=== PATIENT | female | born 1980 | race Caucasian/White ===

== ENCOUNTER → 2016-12-13 | Outpatient (CLI) | payer OTHER ==
--- NOTE | 2016-12-13 15:41 | XR ---
EXAMINATION TYPE: XR foot complete RT DATE OF EXAM: 12/13/2016 3:28 PM CLINICAL HISTORY: Right foot pain for 3 weeks worse in fourth and fifth toes. TECHNIQUE: Frontal, lateral, and oblique images of the right foot are obtained. COMPARISON: None FINDINGS: There is no acute fracture/dislocation evident in the right foot. The joint spaces in the right foot appear within normal limits. The overlying soft tissue appears unremarkable. IMPRESSION: There is no acute fracture or dislocation in the right foot. Unremarkable study.
== END | disposition home or self-care (01) ==
LOC: RADXRMAIN 14:53
PROVIDERS: ATTEND Family Medicine
DX: M79.671 Pain in right foot (principal)

== ENCOUNTER → 2017-04-17 | Outpatient (CLI) | payer OTHER ==
--- NOTE | 2017-04-17 18:23 | MR ---
EXAMINATION TYPE: MR cervical spine wo con DATE OF EXAM: 04/17/2017 COMPARISON: 07/28/2013 HISTORY: Neck pain TECHNIQUE: Multiplanar, multisequence images of the cervical spine were acquired. C2-C3: No evidence for degenerative disc disease. No disc bulge/herniation or protrusion. No Canal stenosis. Foramina are patent bilaterally. C3-C4: No evidence for degenerative disc disease. No disc bulge/herniation or protrusion. No Canal stenosis. Foramina are patent bilaterally. C4-C5: No evidence for degenerative disc disease. No disc bulge/herniation or protrusion. No Canal stenosis. Foramina are patent bilaterally. Mild uncovertebral joint hypertrophy. C5-C6: No evidence for degenerative disc disease. No disc bulge/herniation or protrusion. No Canal stenosis. Foramina are patent bilaterally. Mild uncovertebral joint hypertrophy greater on the left. C6-C7: Very minimal central and left paracentral disc bulging but no canal stenosis or focal herniati on. Neural foramina patent. C7-T1: No evidence for degenerative disc disease. No disc bulge/herniation or protrusion. No Canal stenosis. Foramina are patent bilaterally. Cervical segments are intact. There is normal alignment. Cervical spinal cord is of normal signal. Craniovertebral junction relationships are within normal limits. IMPRESSION: Minimal central and left paracentral disc bulging C6-C7 with no evidence of canal stenosi s or foraminal encroachment.
== END | disposition home or self-care (01) ==
LOC: RADMRIMAIN 17:16
PROVIDERS: ATTEND Family Medicine
DX: M50.223 Other cervical disc displacement at C6-C7 level (principal)
CPT/HCPCS: 72141

== ENCOUNTER → 2017-04-23 | Outpatient (CLI) | payer OTHER | END | disposition home or self-care (01) | LOC: LABWHC1 10:48 | PROVIDERS: ATTEND Obstetrics & Gynecology | DX: N92.0 Excessive and frequent menstruation with regular cycle (principal) | CPT/HCPCS: 36415; 83001; 83002; 84146; 84443 ==

== ENCOUNTER → 2017-06-09 | Outpatient (CLI) | payer OTHER ==
[2017-06-09 13:32] LABS: Basophils # (A) 0.1 k/uL (0-0.2); Basophils % (A) 1 %; CH 30.6; CHCM 33.6; Eosinophils # (A) 0.2 k/uL (0-0.7); Eosinophils % (A) 2 %; HCT 42.5 % (34.0-46.0); HDW 2.65; HGB 14.2 gm/dL (11.4-16.0); Luc # (Auto) 0.15; Luc % (Auto) 2; Lymphocytes # (A) 2.1 k/uL (1.0-4.8); Lymphocytes % (A) 22 %; MCH 30.5 pg (25.0-35.0); MCHC 33.3 g/dL (31.0-37.0); MCV 91.5 fL (80.0-100.0); Mean Platelet Volume 6.7; Monocytes # (A) 0.5 k/uL (0-1.0); Monocytes % (A) 5 %; Neutrophils # (A) 6.7 k/uL (1.3-7.7); Neutrophils % (A) 69 %; RBC 4.65 m/uL (3.80-5.40); RDW 12.8 % (11.5-15.5); WBC 9.7 k/uL (3.8-10.6); WBC (Perox) 9.39
== END | disposition home or self-care (01) ==
LOC: LABPAT 11:50
PROVIDERS: ATTEND Obstetrics & Gynecology
DX: Z01.812 Encounter for preprocedural laboratory examination (principal)
CPT/HCPCS: 85025

== ENCOUNTER → 2017-08-13 | Outpatient (CLI) | payer OTHER ==
--- NOTE | 2017-08-14 11:07 | MM ---
Reason for exam: additional evaluation requested from prior study. Last mammogram was performed 1 year ago. History: Family history of breast cancer in mother at age 48, breast cancer in maternal grandmother, breast cancer in paternal grandmother, and breast cancer in 2 aunts. Took hormonal contraceptives for 2 years. Physical Findings: Nurse Summary: 0.5cm nodule in the right breast at 10 o'clock and a less than 0.5cm nodule in the left breast at 3 o'clock (nurse kp). MG Diagnostic Mammo w CAD [facility] Bilateral CC and MLO view(s) were taken. Prior study comparison: August 09, 2016, bilateral MG screening mammo w CAD. August 08, 2015, bilateral MG screening mammo w CAD. The breast tissue is heterogeneously dense. This may lower the sensitivity of mammography. No suspicious abnormality in the right breast. Stable left medial asymmetry back to 2014. These results were verbally communicated with the patient and result sheet given to the patient on 08/13/17. ASSESSMENT: Benign, BI-RAD 2 RECOMMENDATION: Routine screening mammogram of both breasts in 1 year.
--- NOTE | 2017-08-14 11:08 | USB ---
Reason for exam: clinical finding. History: Family history of breast cancer in mother at age 48, breast cancer in maternal grandmother, breast cancer in paternal grandmother, and breast cancer in 2 aunts. Took hormonal contraceptives for 2 years. Indicated problem(s): palpable abnormality in both breasts. US Breast Limited BILAT Right breast ultrasound demonstrates a 0.6 x 0.6 x 0.6cm oval, hypoechoic lesion at 10 o'clock. Left breast ultrasound demonstrates no cystic or solid lesion seen. These results were verbally communicated with the patient and result sheet given to the patient on 08/13/17. ASSESSMENT: Benign, BI-RAD 2 RECOMMENDATION: Routine screening mammogram of both breasts in 1 year.
== END | disposition home or self-care (01) ==
LOC: RADMAMWWP 10:27
PROVIDERS: ATTEND Obstetrics & Gynecology
DX: R92.8 Other abnormal and inconclusive findings on diagnostic imaging of breast (principal)
CPT/HCPCS: 76642; G0204

== ENCOUNTER → 2017-12-11 | Outpatient (CLI) | payer OTHER ==
[2017-12-11 11:44] LABS: Basophils # (A) 0.1 k/uL (0-0.2); Basophils % (A) 1 %; Eosinophils # (A) 0.1 k/uL (0-0.7); Eosinophils % (A) 1 %; HCT 42.4 % (34.0-46.0); HGB 14.5 gm/dL (11.4-16.0); Lymphocytes # (A) 1.3 k/uL (1.0-4.8); Lymphocytes % (A) 14 %; MCH 30.4 pg (25.0-35.0); MCHC 34.3 g/dL (31.0-37.0); MCV 88.6 fL (80.0-100.0); Mean Platelet Volume 6.6; Monocytes # (A) 0.4 k/uL (0-1.0); Monocytes % (A) 4 %; Neutrophils # (A) 7.3 k/uL (1.3-7.7); Neutrophils % (A) 79 %; Platelet Count 321 k/uL (150-450); RBC 4.78 m/uL (3.80-5.40); RDW 12.6 % (11.5-15.5); WBC 9.3 k/uL (3.8-10.6)
[2017-12-11 12:02] LABS: Anion Gap 12 mmol/L; Blood Urea Nitrogen 17 mg/dL (7-17); Calcium 9.8 mg/dL (8.4-10.2); Carbon Dioxide 29 mmol/L (22-30); Chloride 102 mmol/L (98-107); Glucose 95 mg/dL (74-99); Potassium 4.4 mmol/L (3.5-5.1); Sodium 143 mmol/L (137-145)
== END | disposition home or self-care (01) ==
LOC: LABPAT 11:09
PROVIDERS: ATTEND Obstetrics & Gynecology
DX: Z01.812 Encounter for preprocedural laboratory examination (principal)
CPT/HCPCS: 36415; 80048; 85025

== ENCOUNTER 2017-12-18 05:46 | Observation (INO) | payer OTHER ==
[2017-12-09 08:53] VITALS: BMI 29.9
[~2017-12-18 05:46] MED LIST: DEXAMETHASONE SOD PHOSPHATE 10 MG/ML 1 ML VIAL IV ONE; MORPHINE SULFATE 4 MG/ML SYRINGE IV PRN; ONDANSETRON ODT 4 MG TAB PO ONE
[2017-12-18] MEDS: LACTATED RINGERS 1,000 ML IV SCH ×2 (06:51→06:55)
--- NOTE | 2017-12-18 07:29 | P.HPOB ---
History of Present Illness H&P Date: 12/18/17 Chief Complaint: Menorrhagia and dysmenorrhea Patient is a 29-year-old female who has menorrhagia and dysmenorrhea despite and NovaSure ablation. Pain is actually worsened and her bleeding is actually getting closer since the NovaSure. She is therefore scheduled for a robotic- assisted hysterectomy with possible SARA and possible BSO. Risks/benefits/ alternatives were reviewed with the patient in detail including but not limited to bleeding, infection, damage to bladder/bowel/ureters/nerves/vessels. All questions were answered for her prior to proceeding to the operating room. Symptoms have gotten to the point where she is unable to function well and with passage of 1-2 cm clots for at least 4 days of her cycle off and she is unable to even leave the house. Past Medical History Past Medical History: Musculoskeletal Disorder Additional Past Medical History / Comment(s): heavy menses History of Any Multi-Drug Resistant Organisms: None Reported Past Surgical History: Cholecystectomy, Tubal Ligation, Uterine Ablation Additional Past Surgical History / Comment(s): D&C; Kidney stones Past Anesthesia/Blood Transfusion Reactions: No Reported Reaction Smoking Status: Never smoker - Past Family History Mother Family Medical History: Cancer Medications and Allergies Home Medications Medication Instructions Recorded Confirmed Type Cyclobenzaprine [Flexeril] 10 mg PO BID 12/09/17 12/18/17 History Etodolac [Lodine] 300 mg PO DAILY PRN 12/09/17 12/18/17 History Allergies Allergy/AdvReac Type Severity Reaction Status Date / Time meloxicam AdvReac Swelling Verified 12/18/17 06:23 Penicillins AdvReac Rash/Hives Verified 12/18/17 06:23 Exam Osteopathic Statement: *. No significant issues noted on an osteopathic structural exam other than those noted in the History and Physical/Consult. - Vital Signs Vital signs: Vital Signs Temp Pulse Resp BP Pulse Ox 12/18/17 06:27 98.1 F 85 16 130/81 98 - OBG Physical Exam Breast: both: normal (no masses) Abdomen: bowel sounds normal, no diffuse tenderness, no bruit present, no guarding noted, no hepatomegaly, no splenomegaly, no mass Vulva: both: normal Vagina: normal moisture, no discharge Cervix: no lesion, no discharge Uterus: normal size, normal contour Adnexa: both: normal Anus/Rectum: normal perianal skin, no rectal mass, no hemorrhoids, heme negative
[2017-12-18] MEDS ORDERED: BUPIVACAINE (PF) 0.25% 30 ML VIAL SQ ONE ×3 (07:32→09:01)
[2017-12-18] MEDS ORDERED: MIDAZOLAM 2 MG/2 ML VIAL ONE (07:33)
[2017-12-18] MEDS ORDERED: SUCCINYLCHOLINE CHLORIDE 100 MG/5 ML SYR IV ONE (07:33)
[2017-12-18] MEDS ORDERED: MORPHINE SULFATE 10 MG/ML SYRINGE ONE (07:33)
[2017-12-18] MEDS ORDERED: NEOSTIGMINE 1 MG/ML 10 ML VIAL ONE (07:33)
[2017-12-18] MEDS ORDERED: GLYCOPYRROLATE 0.2 MG/ML 2 ML VIAL ONE (07:33)
[2017-12-18] MEDS ORDERED: ROCURONIUM BROMIDE 10 MG/ML 10 ML VIAL IV ONE (07:33)
[2017-12-18] MEDS ORDERED: PROPOFOL 10 MG/ML 20 ML VIAL IV ONE (07:33)
[2017-12-18] MEDS: ceFAZolin IN SWFI 2 GM/20 ML SYRINGE IVP ONE ×2 (07:33→07:45)
[2017-12-18] MEDS ORDERED: fentaNYL (PF) 50 MCG/ML 2 ML AMP ONE (07:33)
[2017-12-18] MEDS ORDERED: LIDOCAINE 1% INJ 10MG/ML (20 ML MDV) ONE (07:33)
[2017-12-18] MEDS ORDERED: Acetaminophen-Codeine 300-30mg TAB PO PRN ×2 (09:02)
[2017-12-18] MEDS ORDERED: ONDANSETRON 4 MG/2 ML VIAL IVP PRN (09:02)
[2017-12-18] MEDS ORDERED: diphenhydrAMINE 50 MG/ML 1 ML VIAL IVP PRN (09:02)
[2017-12-18] MEDS ORDERED: SIMETHICONE 80 MG CHEWABLE PO PRN (09:02)
--- NOTE | 2017-12-18 09:10 | P.OP ---
Date of Procedure: 12/18/17 Preoperative Diagnosis: Menorrhagia: Dysmenorrhea: Failed NovaSure Postoperative Diagnosis: Same Procedure(s) Performed: Robotic-assisted laparoscopic hysterectomy Anesthesia: ANUPAMA Surgeon: Raul Hunter Automatic Nailing Machine Operator #1: Jeanie Shen Estimated Blood Loss (ml): 300 IV fluids (ml): 600 Urine output (ml): 200 Pathology: other (Uterus and cervix) Condition: stable Disposition: floor Operative Findings: Normal ovaries and tubes Description of Procedure: Patient was taken to the operating suite where a general anesthetic was found be adequate. She was prepped and draped in the normal sterile fashion and placed in the dorsal lithotomy position. Initially weighted speculum was inserted into the vagina and the anterior lip of the cervix was identified and grasped with a single-tooth tenaculum. Uterus was then sounded to 8 cm and cup sizes measured to 3 cm. Sutures were then placed at 3 and 9 and Kiah manipulator was inserted without difficulty. Mendoza catheter was then placed and other instruments were removed. Gloves were then changed and attention was turned to the abdominal portion of the procedure where 2 mL of quarter percent Marcaine was injected approximately 2 cm above the umbilicus. Through this injected anesthetic a 8 mm skin incision was made and through this incision under direct visualization with an optical trocar and sleeve the camera was inserted. Once peritoneal placement was assured gas was allowed to fully insufflate the abdomen and patient was then placed in steep Trendelenburg position. 2 lateral ports were then placed 10 cm from the umbilicus through 8 mm skin incisions these were da Laquita ports a fourth port and sleeve was then inserted between the left lateral and medial ports this was through a 1 cm incision. Camera port was then exchanged all this was done under direct visualization. Robot was then brought in and docked and a monopolar scissor was placed in the one arm and a bipolar [place] grasper in the 2 arm. I did break scrub at this point and went to the console. Uterus was then elevated observations the pelvis were made. First the left fallopian tube was cauterized and transected following this the utero-ovarian ligament and tissues were cauterized and cut broad ligament tissues and mesosalpinx tissues were then transected to the round ligament which was cauterized and cut in an skeletonization of the left side of the uterus was done. Once this was accomplished bladder flap was identified and undermined with [place] grasper and incised with the Metzenbaum scissor across the face the uterus. Bladder flap was then dissected out of the operative field. Once completed right side of the uterus was developed in a similar fashion. Vast clear to bilaterally was then cauterized with blanching of the uterus. The majority of the blood loss that we noted was from back bleeding during the skeletonization process. Once this was controlled and bilateral sides were developed, anterior colpotomy was completed. Once finished we did follow the blue cup in a circumferential fashion 360 around the cervix cauterizing and cheating ahead 1 necessary to maintain hemostasis. Once this was completed uterus was brought into the vagina to maintain pneumoperitoneum. Pedicles were verified for hemostasis and then instruments were exchanged for Kev grasper and a make suture cut and the vaginal cuff was closed in running fashion with to OB lock suture. Once this was completed pelvis was thoroughly irrigated no bleeding is noted and pedicles appeared hemostatic. Therefore instruments were removed and gas was allowed to expel from the abdomen 5 deep breaths were provided during this process. Once this was a complex Dr. Shen to close the incision subcuticularly and the remaining 8 mL of quarter percent Marcaine was injected around the incisions. I did do a cystoscopy as well and excellent flow was noted from both ureteral jets. Patient was then taken to the recovery room in stable condition and she did tolerate surgery very well.
[2017-12-18] MEDS: MEPERIDINE 50 MG/ML SYRINGE IVP ONE ×2 (09:20→09:30)
[2017-12-18] MEDS: KETOROLAC 30 MG/ML 1 ML VIAL IVP PRN ×3 (09:49→22:24)
[2017-12-18] MEDS ORDERED: NALOXONE 0.4 MG/ML 1 ML VIAL IV PRN (12:27)
[2017-12-18] MEDS ORDERED: HYDROmorphone PCA 5 MG/25 ML SYRINGE IV PRN (12:27)
[2017-12-18 20:17] VITALS: RESP 16
[2017-12-18] MEDS: SENNOSIDES-DOCUSATE SODIUM 1 EACH TAB PO SCH (22:27)
[2017-12-19] MEDS: KETOROLAC 30 MG/ML 1 ML VIAL IVP PRN ×2 (03:37→08:22)
[2017-12-19 07:42] VITALS: BP 130/66; PULSE 89; TEMP 97.7
--- NOTE | 2017-12-19 08:21 | P.DS ---
Providers Date of admission: 12/18/17 14:35 Expected date of discharge: 12/19/17 Attending physician: Raul Hunter Primary care physician: [facility] Course: Patient is doing very well postop day 1. She is ambulating, voiding and she is tolerating her diet. She voices no complaints. CBC is pending. However she has no symptoms. Vital signs are stable and she is afebrile. Heart regular, lungs clear, extremities without pain. Abdomen soft positive bowel sounds are noted and incisions appear intact. Assessment postop day 1. Plan discharged home follow up in 1 week. Discharge instructions were thoroughly reviewed and all questions are answered for her prior to discharge. She is acutely aware to be on complete pelvic rest for at least 6-8 weeks. Otherwise prescription for Tylenol No. 3 has been provided for 3 day supply. All the questions are answered and she is stable for discharge at this time. Patient Condition at Discharge: Good Plan - Discharge Summary Discharge Rx Participant: Yes New Discharge Prescriptions: New Acetaminophen-Codeine 300-30mg [Tylenol #3] 1 tab PO Q4H PRN #30 tablet PRN Reason: Pain No Action Cyclobenzaprine [Flexeril] 10 mg PO BID Etodolac [Lodine] 300 mg PO DAILY PRN PRN Reason: Pain Discharge Medication List Cyclobenzaprine [Flexeril] 10 mg PO BID 12/09/17 [History] Etodolac [Lodine] 300 mg PO DAILY PRN 12/09/17 [History] Acetaminophen-Codeine 300-30mg [Tylenol #3] 1 tab PO Q4H PRN #30 tablet [Rx] Follow up Appointment(s)/Referral(s): Raul Hunter DO [Doctor of Osteopathic Medicine] - 1 Week Activity/Diet/Wound Care/Special Instructions: No heavy lifting, limit stairs and driving, and pelvic rest. If any high temperatures, heavy bleeding, or severe pain call my office Discharge Disposition: HOME SELF-CARE
[2017-12-19] MEDS: SENNOSIDES-DOCUSATE SODIUM 1 EACH TAB PO SCH (08:22)
[2017-12-19 08:26] LABS: Basophils # (A) 0.1 k/uL (0-0.2); Basophils % (A) 0 %; Eosinophils # (A) 0.1 k/uL (0-0.7); Eosinophils % (A) 1 %; HCT 37.8 % (34.0-46.0); Lymphocytes # (A) 2.6 k/uL (1.0-4.8); Lymphocytes % (A) 17 %; MCH 30.7 pg (25.0-35.0); MCHC 34.3 g/dL (31.0-37.0); MCV 89.3 fL (80.0-100.0); Mean Platelet Volume 6.7; Monocytes # (A) 0.6 k/uL (0-1.0); Monocytes % (A) 4 %; Neutrophils # (A) 11.6 k/uL (1.3-7.7); Neutrophils % (A) 76 %; Platelet Count 354 k/uL (150-450); RBC 4.24 m/uL (3.80-5.40); RDW 12.8 % (11.5-15.5); WBC 15.2 k/uL (3.8-10.6)
== END 2017-12-19 09:59 | disposition home or self-care (01) ==
LOC: OR 05:46 → 4FBP 09:02 → OR 14:40
PROVIDERS: ADMIT Obstetrics & Gynecology; ATTEND Obstetrics & Gynecology
DX: N80.0 Endometriosis of uterus (principal); N87.9 Dysplasia of cervix uteri, unspecified; N92.0 Excessive and frequent menstruation with regular cycle; N94.6 Dysmenorrhea, unspecified; Z90.49 Acquired absence of other specified parts of digestive tract; Z87.442 Personal history of urinary calculi; Z98.51 Tubal ligation status; Z88.0 Allergy status to penicillin; Z88.6 Allergy status to analgesic agent; Z79.899 Other long term (current) drug therapy; Z80.9 Family history of malignant neoplasm, unspecified
CPT/HCPCS: 58570; S2900; 81025; 85025; 86850; 86900; 86901; 88307

== ENCOUNTER → 2019-04-08 | Outpatient (CLI) | payer OTHER ==
--- NOTE | 2019-04-09 09:14 | MM ---
Reason for exam: screening (asymptomatic). Last mammogram was performed 1 year and 8 months ago. History: Family history of breast cancer in mother at age 48, breast cancer in maternal grandmother, breast cancer in paternal grandmother, and breast cancer in 2 aunts. Took hormonal contraceptives for 2 years. Physical Findings: A clinical breast exam by your physician is recommended on an annual basis and results should be correlated with mammographic findings. MG Screening Mammo w CAD Bilateral CC and MLO view(s) were taken. Prior study comparison: August 13, 2017, bilateral MG diagnostic mammo w CAD [facility]. August 09, 2016, bilateral MG screening mammo w CAD. The breast tissue is heterogeneously dense. This may lower the sensitivity of mammography. There is no discrete abnormality. No significant changes when compared with prior studies. ASSESSMENT: Negative, BI-RAD 1 RECOMMENDATION: Routine screening mammogram of both breasts in 1 year.
== END | disposition home or self-care (01) ==
LOC: RADMAMWWP 09:01
PROVIDERS: ATTEND Obstetrics & Gynecology
DX: Z12.31 Encounter for screening mammogram for malignant neoplasm of breast (principal)
CPT/HCPCS: 77067

== ENCOUNTER 2020-04-28 14:07 | Emergency (ER) | payer OTHER ==
[2020-04-28 14:32] VITALS: BP 133/77; PULSE 78; RESP 18; TEMP 98.6
--- NOTE | 2020-04-28 14:59 | ED ---
Allergic Reaction HPI - General Chief complaint: Allergic Reaction Stated complaint: Bee Sting - [facility] Time Seen by Provider: 04/28/20 14:43 Source: patient, RN notes reviewed Mode of arrival: ambulatory Limitations: no limitations - History of Present Illness Initial Comments: 39-year-old female presents emergency from chief complaint bee sting to her left hand fifth digit. Patient states that this happened about 3 hours ago. She has no shortness breath or difficulty swallowing. Patient states there is moderate swelling which is now also resolved. She did not take any medications. She's never been stung by a bee in the past. - Related Data Home Medications Medication Instructions Recorded Confirmed Cyclobenzaprine [Flexeril] 10 mg PO BID 12/09/17 12/18/17 Etodolac [Lodine] 300 mg PO DAILY PRN 12/09/17 12/18/17 Previous Rx's Medication Instructions Recorded Acetaminophen-Codeine 300-30mg 1 tab PO Q4H PRN #30 tablet 12/19/17 [Tylenol #3] Allergies Allergy/AdvReac Type Severity Reaction Status Date / Time meloxicam AdvReac Swelling Verified 04/28/20 14:28 Penicillins AdvReac Rash/Hives Verified 04/28/20 14:28 Review of Systems ROS Statement: Those systems with pertinent positive or pertinent negative responses have been documented in the HPI. ROS Other: All systems not noted in ROS Statement are negative. Past Medical History Past Medical History: Musculoskeletal Disorder Additional Past Medical History / Comment(s): heavy menses History of Any Multi-Drug Resistant Organisms: None Reported Past Surgical History: Cholecystectomy, Tubal Ligation, Uterine Ablation Additional Past Surgical History / Comment(s): D&C; Kidney stones Past Anesthesia/Blood Transfusion Reactions: No Reported Reaction Past Psychological History: No Psychological Hx Reported Past Alcohol Use History: None Reported Past Drug Use History: None Reported - Past Family History Mother Family Medical History: Cancer General Exam Limitations: no limitations General appearance: alert, in no apparent distress Neck exam: Present: normal inspection. Absent: tenderness, meningismus, lymphadenopathy Respiratory exam: Present: normal lung sounds bilaterally. Absent: respiratory distress, wheezes, rales, rhonchi, stridor Cardiovascular Exam: Present: regular rate, normal rhythm, normal heart sounds. Absent: systolic murmur, diastolic murmur, rubs, gallop, clicks Extremities exam: Present: other (There is mild erythema over the fifth digit, minimal swelling, neurovascular intact) Skin exam: Present: warm, dry, intact, normal color. Absent: rash Course Vital Signs 04/28/20 14:25 Temperature 98.6 F Pulse Rate 78 Respiratory 18 Rate Blood Pressure 133/77 O2 Sat by Pulse 99 Oximetry Medical Decision Making - Medical Decision Making Patient has localized reaction. Patient has no other symptoms. Patient will be discharged in stable condition return parameters discussed. Disposition Clinical Impression: Bee sting Disposition: HOME SELF-CARE Condition: Stable Instructions (If sedation given, give patient instructions): Insect Bite or St ing (ED) Additional Instructions: Please return to the Emergency Department if symptoms worsen or any other concerns. Is patient prescribed a controlled substance at d/c from ED?: No Referrals: Livan Mac DO [Primary Care Provider] - 1-2 days Time of Disposition: 14:59
== END 2020-04-28 15:00 | disposition home or self-care (01) ==
LOC: EC 14:07
DX: T63.441A Toxic effect of venom of bees, accidental (unintentional), initial encounter (principal); M79.9 Soft tissue disorder, unspecified; Z79.899 Other long term (current) drug therapy; Z88.0 Allergy status to penicillin; Z88.8 Allergy status to other drugs, medicaments and biological substances
CPT/HCPCS: 99283

== ENCOUNTER → 2020-06-13 | Outpatient (CLI) | payer OTHER ==
--- NOTE | 2020-06-14 11:59 | MM ---
Reason for exam: screening (asymptomatic). Last mammogram was performed 1 year and 2 months ago. History: Family history of breast cancer in mother at age 48, breast cancer in maternal grandmother, breast cancer in paternal grandmother, and breast cancer in 2 aunts. Took hormonal contraceptives for 2 years. Physical Findings: A clinical breast exam by your physician is recommended on an annual basis and results should be correlated with mammographic findings. MG Screening Mammo w CAD Bilateral CC and MLO view(s) were taken. Prior study comparison: April 08, 2019, bilateral MG screening mammo w CAD. August 13, 2017, bilateral MG diagnostic mammo w CAD [facility]. The breast tissue is extremely dense which could obscure a lesion on mammography. Asymmetric breast tissue left posterior inferior breast. There is no discrete abnormality. ASSESSMENT: Negative, BI-RAD 1 RECOMMENDATION: Routine screening mammogram of both breasts in 1 year.
== END | disposition home or self-care (01) ==
LOC: RADMAMWWP 07:11
PROVIDERS: ATTEND Obstetrics & Gynecology
DX: Z12.31 Encounter for screening mammogram for malignant neoplasm of breast (principal); Z80.3 Family history of malignant neoplasm of breast
CPT/HCPCS: 77067

== ENCOUNTER → 2022-11-19 | Outpatient (CLI) | payer OTHER ==
--- NOTE | 2022-11-20 08:50 | MM ---
Reason for Exam: Screening (asymptomatic). Last mammogram was performed 2 year(s) and 6 month(s) ago. Patient History: Menarche at age 10. First Full-Term at age 29. Late child-bearing (after 30). Hysterectomy at age 35. Patient used Hormonal Contraceptives for 2 years. Paternal grandmother had breast cancer. Maternal grandmother had breast cancer. Maternal aunt had breast cancer. Maternal aunt had breast cancer. Mother had breast cancer, age 48. Risk Values: Beti 5 year model risk: 1.6%. NCI Lifetime model risk: 20.4%. Prior Study Comparison: 08/13/2017 Bilateral Diagnostic Mammogram, [facility]. 04/08/2019 Bilateral Screening Mammogram, [facility]. 06/13/2020 Bilateral Screening Mammogram, [facility]. Tissue Density: The breast tissue is heterogeneously dense. This may lower the sensitivity of mammography. Findings: Analyzed By CAD. There is possible new 6 mm oval obscured mass in the middle depth slightly inner right breast that warrants further workup. Overall Assessment: Incomplete: need additional imaging evaluation, BI-RAD 0 Management: Special View Mammogram of the right breast. Return for additional spot views and true lateral view. Electronically signed and approved by: Jaswinder Nam M.D.
== END | disposition home or self-care (01) ==
LOC: RADMAMWWP 07:03
PROVIDERS: ATTEND Family Medicine
DX: Z12.31 Encounter for screening mammogram for malignant neoplasm of breast (principal); Z80.3 Family history of malignant neoplasm of breast
CPT/HCPCS: 77067

== ENCOUNTER → 2022-11-22 | Outpatient (CLI) | payer OTHER ==
--- NOTE | 2022-11-22 14:19 | MM ---
Reason for Exam: Additional evaluation requested from abnormal screening. Last screening mammogram was performed less than 1 month ago. Patient History: Menarche at age 10. First Full-Term at age 29. Late child-bearing (after 30). Hysterectomy at age 35. Patient used Hormonal Contraceptives for 2 years. Paternal grandmother had breast cancer. Maternal grandmother had breast cancer. Maternal aunt had breast cancer. Maternal aunt had breast cancer. Mother had breast cancer, age 48. Risk Values: Beti 5 year model risk: 1.6%. NCI Lifetime model risk: 20.4%. Prior Study Comparison: 08/08/2015 Bilateral Screening Mammogram, [facility]. 08/09/2016 Bilateral Screening Mammogram, [facility]. 08/14/2016 Bilateral Diagnostic Ultrasound, [facility]. 08/13/2017 Bilateral Diagnostic Mammogram, [facility]. 08/13/2017 Bilateral Diagnostic Ultrasound, [facility]. 04/08/2019 Bilateral Screening Mammogram, [facility]. 06/13/2020 Bilateral Screening Mammogram, [facility]. 11/19/2022 Bilateral MG screening mammo w CAD, [facility]. Tissue Density: Right: The breast tissue is heterogeneously dense. This may lower the sensitivity of mammography. Findings: Analyzed By CAD. Oval 7 mm well-circumscribed mass within the inner lower right breast at middle depth approximately examination with nipple. This is high density and persist with compression. No suspicious calcifications. Overall Assessment: Incomplete: need additional imaging evaluation, BI-RAD 0 Management: Diagnostic Breast Ultrasound of the right breast. A clinical breast exam by your physician is recommended on an annual basis and results should be correlated with mammographic findings. This exam should not preclude additional follow-up of suspicious palpable abnormalities. Results were given to the patient verbally at the time of exam. Electronically signed and approved by: Malik Salazar D.O.
--- NOTE | 2022-11-22 15:01 | USB ---
Reason for Exam: Additional evaluation requested from abnormal screening. Patient History: Menarche at age 10. First Full-Term at age 29. Late child-bearing (after 30). Hysterectomy at age 35. Patient used Hormonal Contraceptives for 2 years. Paternal grandmother had breast cancer. Maternal grandmother had breast cancer. Maternal aunt had breast cancer. Maternal aunt had breast cancer. Mother had breast cancer, age 48. Risk Values: Beti 5 year model risk: 1.6%. NCI Lifetime model risk: 20.4%. Technique: Method: Targeted. Prior Study Comparison: 04/08/2019 Bilateral Screening Mammogram, [facility]. 06/13/2020 Bilateral Screening Mammogram, [facility]. 11/19/2022 Bilateral MG screening mammo w CAD, [facility]. Findings: The lower inner quadrant of the right breast, the axilla of the right breast and the retroareolar of the right breast were scanned. Targeted ultrasound of the right breast at 3-6 o'clock was performed additional evaluation of the nipple and axilla. There is a well-circumscribed parallel anechoic thin-walled cyst with trace posterior acoustic enhancement and no internal color flow within the right breast at 3:00 6 cm from the nipple.. Overall Assessment: Benign, BI-RAD 2 Management: Screening Mammogram of both breasts in 1 year. A clinical breast exam by your physician is recommended on an annual basis and results should be correlated with mammographic findings. This exam should not preclude additional follow-up of suspicious palpable abnormalities. Results were given to the patient verbally at the time of exam. Electronically signed and approved by: Malik Salazar D.O.
== END | disposition home or self-care (01) ==
LOC: RADMAMWWP 13:46
PROVIDERS: ATTEND Family Medicine
DX: R92.8 Other abnormal and inconclusive findings on diagnostic imaging of breast (principal); Z80.3 Family history of malignant neoplasm of breast
CPT/HCPCS: 77061; 77065

== ENCOUNTER 2022-12-02 16:06 | Emergency (ER) | payer OTHER ==
[2022-12-02 16:56] VITALS: RESP 18; TEMP 97.6
--- NOTE | 2022-12-02 16:57 | ED ---
General Adult HPI <Amanda Brewer - Last Filed: 12/02/22 16:57> - General Source: patient, family, RN notes reviewed Mode of arrival: ambulatory Limitations: no limitations <Lisa Beck - Last Filed: 12/03/22 01:56> - General Chief complaint: Abdominal Pain Stated complaint: abd pain-sent by office Time Seen by Provider: 12/02/22 16:56 - History of Present Illness Initial comments: 42-year-old female with no significant medical history presents to the emergency department with a chief complaint of sudden onset right-sided lower abdominal pain that started approximately 12:00 this afternoon. (Amanda Brewer) When I went to evaluate the patient, she states that the pain is in the right lower abdomen and right flank. She also has urinary frequency with low urine output. Her states that she had to urinate multiple times in the waiting room, however she was only able to get a small amount out each time. Denies any burning with urination. She has a history of kidney stones, however she states that she has not had one in many years and is unsure if the pain feels entirely the same. She has associated nausea and vomiting as well. Denies any changes in bowel habits. (Lisa Beck) - Related Data Home Medications Medication Instructions Recorded Confirmed FLUoxetine HCL [PROzac] 20 mg PO DAILY 12/02/22 12/02/22 Previous Rx's Medication Instructions Recorded HYDROcodone/APAP 5-325MG [[place] 1 tab PO Q6HR PRN 3 Days #12 tab 12/02/22 5-325] Ibuprofen [Motrin] 800 mg PO Q8H PRN #15 tab 12/02/22 Ondansetron Odt [Zofran Odt] 4 mg PO Q8HR PRN #15 tab 12/02/22 Allergies Allergy/AdvReac Type Severity Reaction Status Date / Time meloxicam AdvReac Swelling Verified 12/02/22 20:52 Penicillins AdvReac Rash/Hives Verified 12/02/22 20:52 Review of Systems ROS Other: All systems not noted in ROS Statement are negative. <Amanda Brewer - Last Filed: 12/02/22 16:57> ROS Other: All systems not noted in ROS Statement are negative. <Lisa Beck - Last Filed: 12/03/22 01:56> ROS Statement: Those systems with pertinent positive or pertinent negative responses have been documented in the HPI. Past Medical History Past Medical History: Musculoskeletal Disorder Additional Past Medical History / Comment(s): heavy menses History of Any Multi-Drug Resistant Organisms: None Reported Past Surgical History: Cholecystectomy, Tubal Ligation, Uterine Ablation Additional Past Surgical History / Comment(s): D&C; Kidney stones Past Anesthesia/Blood Transfusion Reactions: No Reported Reaction Past Psychological History: No Psychological Hx Reported Past Alcohol Use History: None Reported Past Drug Use History: None Reported - Past Family History Mother Family Medical History: Cancer <Amanda Brewer - Last Filed: 12/02/22 16:57> General Exam <Amanda Brewer - Last Filed: 12/02/22 16:57> Limitations: no limitations General appearance: alert, in distress Head exam: Present: atraumatic, normocephalic, normal inspection Respiratory exam: Present: normal lung sounds bilaterally. Absent: respiratory distress, wheezes, rales, rhonchi, stridor Cardiovascular Exam: Present: regular rate, normal rhythm, normal heart sounds. Absent: systolic murmur, diastolic murmur, rubs, gallop, clicks GI/Abdominal exam: Present: soft, tenderness (RLQ), guarding, normal bowel sounds. Absent: distended Back exam: Present: CVA tenderness (R). Absent: CVA tenderness (L) Neurological exam: Present: alert, oriented X3, CN II-XII intact Psychiatric exam: Present: normal affect, normal mood Skin exam: Present: warm, dry, intact, normal color. Absent: rash <Lisa Beck - Last Filed: 12/03/22 01:56> - General Exam Comments Initial Comments: Visual Physical Exam Vital signs reviewed General: Well-appearing, nontoxic, no acute distress. Head: Normocephalic, atraumatic Eyes: PERRLA, EOMI ENT: Airway patent Chest: Nonlabored breathing Skin: No visual rash, normal skin tone Neuro: Alert and oriented 3 Musculoskeletal: No gross abnormalities (Amanda Brewer) Course Vital Signs 12/02/22 12/02/22 16:53 22:54 Temperature 97.6 F Pulse Rate 66 89 Respiratory 18 18 Rate Blood Pressure 146/90 160/89 O2 Sat by Pulse 98 98 Oximetry Medical Decision Making - Lab Data Result diagrams: 12/02/22 17:34 12/02/22 17:34 - Radiology Data Radiology results: report reviewed, image reviewed <Lisa Beck - Last Filed: 12/03/22 01:56> - Medical Decision Making This is a 42-year-old female who presents to the emergency department for right lower quadrant pain. Was pt. sent in by a medical professional or institution? @ -No Did you speak to anyone other than the patient for history? @ -Her Did you review nursing and triage notes? @ -Yes, and I agree, it is accurate with regards to the patient's symptoms. Were old charts reviewed? @ -No Differential Diagnosis? @ -Differential Abdominal Pain Women: Appendicitis, Cholecystitis, diverticulosis, ischemic bowel, pancreatitis, hepatitis, UTI, gastroenteritis, AAA, incarcerated hernia, bowel obstruction, constipation, inflammatory bowel, hepatitis, peptic ulcer disease, splenic infarction, perforated viscus, vulvitis, ovarian torsion, PID, kidney stone, placenta abruption, this is not meant to be an all-inclusive list CT interpreted by me (1pt min.)? @ -Computed tomography scan of the abdomen and pelvis obtained. My interpretation identifies a right ureteral calculus with hydronephrosis. What testing was considered but not performed? (CT, X-rays, U/S, labs)? Why? @ -None What meds were considered but not given? Why? @ -None Did you discuss the management of the patient with other professionals? @ -No Did you reconcile home meds? @ -No Was smoking cessation discussed for >3mins.? @ -No Was critical care preformed (if so, how long)? @ -No Were there social determinants of health that impacted care today? How? (Homelessness, low income, unemployed, alcoholism, drug addiction, transportation, low edu. Level, literacy, decrease access to med. care, retirement, rehab)? @ -No Was there de-escalation of care discussed even if they declined? (Discuss DNR or withdrawal of care, Hospice)? @ -No What co-morbidities impacted this encounter? (DM, HTN, Smoking, COPD, CAD, Cancer, CVA, Hep., AIDS, mental health diagnosis, sleep apnea, morbid obesity)? @ -None Was patient admitted / discharged? @ -Discharged. Lab work obtained revealing leukocytosis and no other actionable findings. Urinalysis negative for signs of infection. Computed tomography scan of the abdomen and pelvis reveals a 1.1 cm ureteral calculus with moderate to severe hydronephrosis. Toradol and morphine administered for pain, which was only moderately effective. Discussed with the patient admission versus discharge home. Patient ultimately requested discharge home. Presc ription for ibuprofen, Zofran, and Un[place] provided with dosing instructions reviewed. Advised she take the ibuprofen with Tylenol and take the Un[place]illa sparingly when her pain is the most severe and to avoid driving or operating machinery when taking this. Information for urology follow-up provided. She is instructed to contact them first thing in the morning for a follow-up appointment. Undiagnosed new problem with uncertain prognosis? @ -None Drug Therapy requiring intensive monitoring for toxicity (Heparin, Nitro, Insulin, Cardizem)? @ -None Were any procedures done? @ -None Diagnosis/symptom? @ -Right ureteral calculus Acute, or Chronic, or Acute on Chronic? @ -Acute Uncomplicated (without systemic symptoms) or Complicated (systemic symptoms)? @ -Uncomplicated Side effects of treatment? @ -None Exacerbation, Progression, or Severe Exacerbation] @ -Not applicable Poses a threat to life or bodily function? @ -No Return precautions reviewed in depth, the patient is instructed to return to the emergency department with any new, worsening, or concerning symptoms. Patient verbalized understanding. This case was discussed in detail with the attending ED physician, Dr. Zacarias. Presentation, findings, and treatment plan discussed in detail as well. (Lisa Beck) - Lab Data Lab Results 12/02/22 12/02/22 12/02/22 Range/Units 17:00 17:34 17:34 WBC 13.8 H (3.8-10.6) k/uL RBC 4.81 (3.80-5.40) m/uL Hgb 14.6 (11.4-16.0) gm/dL Hct 42.4 (34.0-46.0) % MCV 88.2 (80.0-100.0) fL MCH 30.3 (25.0-35.0) pg MCHC 34.4 (31.0-37.0) g/dL RDW 12.8 (11.5-15.5) % Plt Count 376 (150-450) k/uL MPV 7.2 Neutrophils % 71 % Lymphocytes % 20 % Monocytes % 5 % Eosinophils % 1 % Basophils % 0 % Neutrophils # 9.8 H (1.3-7.7) k/uL Lymphocytes # 2.8 (1.0-4.8) k/uL Monocytes # 0.7 (0-1.0) k/uL Eosinophils # 0.1 (0-0.7) k/uL Basophils # 0.1 (0-0.2) k/uL Sodium 139 (137-145) mmol/L Potassium 4.0 (3.5-5.1) mmol/L Chloride 103 (98-107) mmol/L Carbon Dioxide 26 (22-30) mmol/L Anion Gap 10 mmol/L BUN 12 (7-17) mg/dL Creatinine 0.78 (0.52-1.04) mg/dL Est GFR (CKD-EPI)AfAm >90 (>60 ml/min/1.73 sqM) Est GFR (CKD-EPI)NonAf >90 (>60 ml/min/1.73 sqM) Glucose 81 (74-99) mg/dL Calcium 9.6 (8.4-10.2) mg/dL Total Bilirubin 0.4 (0.2-1.3) mg/dL AST 19 (14-36) U/L ALT 16 (4-34) U/L Alkaline Phosphatase 64 (38-126) U/L Total Protein 7.3 (6.3-8.2) g/dL Albumin 4.5 (3.5-5.0) g/dL Urine Color Light Yellow Urine Appearance Clear (Clear) Urine pH 6.0 (5.0-8.0) Ur Specific [place] 1.008 (1.001-1.035) Urine Protein Negative (Negative) Urine Glucose (UA) Negative (Negative) Urine Ketones Negative (Negative) Urine Blood Negative (Negative) Urine Nitrite Negative (Negative) Urine Bilirubin Negative (Negative) Urine Urobilinogen <2.0 (<2.0) mg/dL Ur Leukocyte Esterase Negative (Negative) Disposition <Amanda Brewer - Last Filed: 12/02/22 16:57> Is patient prescribed a controlled substance at d/c from ED?: Yes When asked, does pt state using other controlled substances?: No If prescribed controlled substance>3 days was MAPS reviewed?: Prescribed <3 Days <BrijeshLisa martines - Last Filed: 12/03/22 01:56> Clinical Impression: Right ureteral calculus, Hydronephrosis Disposition: HOME SELF-CARE Instructions (If sedation given, give patient instructions): Hydronephrosis (ED), Ureteral Stones (ED) Additional Instructions: Return to the emergency department with any new, worsening, or concerning sym ptoms. Alternate with ibuprofen and Tylenol as needed for pain relief. Take the Unadilla sparingly when your pain is the most severe. Beware that the [place] is sedating and you should avoid driving or operating machinery when taking this. Take the Zofran up to every 8 hours as needed for nausea and vomiting. Contact urology as listed below first thing tomorrow morning. Make sure that you tell them that you were seen in the emergency department and found to have a large 11 mm kidney stone with moderate to severe hydronephrosis and need a follow-up appointment as soon as possible this week. Prescriptions: Ibuprofen [Motrin] 800 mg PO Q8H PRN #15 tab PRN Reason: Pain HYDROcodone/APAP 5-325MG [[place] 5-325] 1 tab PO Q6HR PRN 3 Days #12 tab PRN Reason: Pain Ondansetron Odt [Zofran Odt] 4 mg PO Q8HR PRN #15 tab PRN Reason: Nausea And Vomiting Referrals: Eligio Sahni MD [Primary Care Provider] - 1-2 days Mariano Lambert MD [STAFF PHYSICIAN] - 1-2 days
[2022-12-02 17:18] LABS: Appearance,Urine Clear (Clear); Bilirubin,Urine Negative (Negative); Blood,Urine Negative (Negative); Color,Urine Light Yellow; Glucose,Urine (UA) Negative (Negative); Ketones,Urine Negative (Negative); Leukocyte Esterase,Urine Negative (Negative); Nitrite,Urine Negative (Negative); Protein,Urine Negative (Negative); Specific Gravity,Urine 1.008 (1.001-1.035); Urobilinogen,Urine <2.0 mg/dL (<2.0)
[2022-12-02 17:57] LABS: Basophils # (A) 0.1 k/uL (0-0.2); Basophils % (A) 0 %; Eosinophils # (A) 0.1 k/uL (0-0.7); Eosinophils % (A) 1 %; HCT 42.4 % (34.0-46.0); HGB 14.6 gm/dL (11.4-16.0); Lymphocytes # (A) 2.8 k/uL (1.0-4.8); Lymphocytes % (A) 20 %; MCH 30.3 pg (25.0-35.0); MCHC 34.4 g/dL (31.0-37.0); MCV 88.2 fL (80.0-100.0); Mean Platelet Volume 7.2; Monocytes # (A) 0.7 k/uL (0-1.0); Monocytes % (A) 5 %; Neutrophils # (A) 9.8 k/uL (1.3-7.7); Neutrophils % (A) 71 %; Platelet Count 376 k/uL (150-450); RBC 4.81 m/uL (3.80-5.40); RDW 12.8 % (11.5-15.5); WBC 13.8 k/uL (3.8-10.6)
[2022-12-02 18:07] LABS: ALT 16 U/L (4-34); AST 19 U/L (14-36); African American GFR (CKD) >90 (>60 ml/min/1.73 sqM); Albumin 4.5 g/dL (3.5-5.0); Alkaline Phosphatase 64 U/L (38-126); Anion Gap 10 mmol/L; Blood Urea Nitrogen 12 mg/dL (7-17); Calcium 9.6 mg/dL (8.4-10.2); Carbon Dioxide 26 mmol/L (22-30); Chloride 103 mmol/L (98-107); Glucose 81 mg/dL (74-99); Non-African American GFR(CKD) >90 (>60 ml/min/1.73 sqM); Sodium 139 mmol/L (137-145); Total Bilirubin 0.4 mg/dL (0.2-1.3); Total Protein 7.3 g/dL (6.3-8.2)
[2022-12-02] MEDS ORDERED: KETOROLAC 15 MG/ML 1 ML VIAL IVP STA (20:05)
[2022-12-02] MEDS ORDERED: ONDANSETRON 4 MG/2 ML VIAL IVP STA (20:05)
[2022-12-02] MEDS ORDERED: MORPHINE SULFATE 2 MG/ML SYRINGE IVP STA (20:24)
--- NOTE | 2022-12-02 21:43 | CT ---
EXAMINATION TYPE: CT abdomen pelvis w con DATE OF EXAM: 12/02/2022 COMPARISON: None INDICATION: RLQ and Rt flank pain. Hx of kidney stones DLP: 1137.4 mGycm, Automated exposure control for dose reduction was used. CONTRAST: 100cc mL of Isovue 300. Study performed without Oral Contrast TECHNIQUE: Axial images were obtained from above the diaphragm to the pubic rami in the axial plane a t 5 mm thick sections. Reconstructed images are reviewed on the computer in the coronal plane. FINDINGS: Limited CT sections are obtained the lung bases. The lung bases are clear. CT ABDOMEN: Liver: Normal Spleen: Normal. Splenule anterior to the splenic hilum. Pancreas: Normal Adrenal glands: The adrenal glands are normal. Gallbladder: Surgically absent Kidneys: No masses are evident. There is a moderate right hydronephrosis and moderate to marked right hydroureter. Hydroureter extends to the right ureterovesical junction. There is a nonobstructing griselda cification at the right ureterovesical junction measuring 1.1 x 0.5 cm. No left hydronephrosis is the re is a nonobstructing punctate renal stone in the upper pole right kidney measuring 0.2 cm some mild perinephric fluid is on the right. No cysts are present. Delayed images were obtained through the k idneys, which remain unremarkable. Aorta: Vascular calcification is within the aorta. Inferior vena cava: Normal. CT PELVIS: Loops of bowel within the abdomen and pelvis are normal. There are loops of bowel which are incom pletely distended or lack oral contrast limiting their evaluation. Appendix: What appears to be the appendix is Normal as visualized. Correlate with the patient's histo ry. Urinary bladder: Decompressed limiting evaluation. Genitourinary structures: There is a 2.2 x 1.2 cm cyst on the right ovary. Left adnexa appears unrema rkable. Uterus appears absent Osseous structures: No suspicious lytic or sclerotic lesions. IMPRESSIONS: 1. 1.1 x 0.5 cm right ureterovesical junction stone obstructing the ureter causing moderate to marke d right hydroureter and moderate right hydronephrosis. 2. Small amount of fluid is adjacent to the right kidney. 3. Nonobstructing left renal stone. 4. Probable right ovarian cyst.
[2022-12-02] MEDS ORDERED: HYDROmorphone 0.5 MG/0.5 ML SYRINGE IVP STA (22:00)
[2022-12-02] MEDS ORDERED: ACETAMINOPHEN IV (For NPO) 1,000 MG in EMPTY BAG 1 BAG IVPB STA (22:00)
[2022-12-02] MEDS ORDERED: ACET/COD 300 MG/30 MG STARTER PACK 6 TAB BTL PO STA (22:07)
[2022-12-02] MEDS ORDERED: ONDANSETRON 4 MG ODT STARTER PACK 2 TAB BTL PO STA (22:07)
[2022-12-02] MEDS ORDERED: HYDROcodone/APAP 5-325MG 1 EACH TAB PO STA (22:07)
[2022-12-02 22:57] VITALS: BP 160/89; PULSE 89
== END 2022-12-02 23:01 | disposition home or self-care (01) ==
LOC: EC 16:06
DX: N13.2 Hydronephrosis with renal and ureteral calculous obstruction (principal); Z90.49 Acquired absence of other specified parts of digestive tract; Z88.0 Allergy status to penicillin; Z88.8 Allergy status to other drugs, medicaments and biological substances
CPT/HCPCS: 51798; 36415; 80053; 85025; 81003; 74177; 99284; 96374; 96375 ×3; J2405; J2270; J1885; S0119; J1170; Q9967

== ENCOUNTER 2022-12-10 12:00 | Day surgery (SDC) | payer OTHER ==
[2022-12-05 10:26] VITALS: BMI 27.8
--- NOTE | 2022-12-10 08:28 | P.HPIHPCON ---
History of Present Illness H&P Date: 12/10/22 Chief Complaint: Right ureteral stone This is a 42-year-old female with a history of 1.1 cm right-sided distal ureteral stone. She symptomatic from her stone. Option of right-sided ureteroscopy with holmium laser was discussed with her detail. Discussed risk which includes but not limited to bleeding, infection, injury to the ureter. Risk of anesthesia was also discussed with her. She understood all the risk and agreed to proceed Consent for Procedure: I have explained the operation/procedure to the patient, including the risks, benefits, side effects, alternative therapies (including not receiving the proposed treatment or service), the likelihood of the patient achieving his/her goals, and potential recuperation problems for the procedure/sedation/analgesia, as well as any blood products, if indicated. I also explained to the patient the risks, benefits and side effects of the alternatives, as well as the risks related to not receiving the proposed procedure, care, treatment, or services. Past Medical History Past Medical History: Musculoskeletal Disorder Additional Past Medical History / Comment(s): IBS., tests positive for TB but chest x-rays negative., kidney stones History of Any Multi-Drug Resistant Organisms: None Reported Past Surgical History: Cholecystectomy, Hysterectomy, Tubal Ligation, Uterine Ablation Additional Past Surgical History / Comment(s): D&C; Kidney stones removal Past Anesthesia/Blood Transfusion Reactions: No Reported Reaction Past Psychological History: No Psychological Hx Reported Smoking Status: Never smoker Past Alcohol Use History: Occasional Past Drug Use History: None Reported - Past Family History Mother Family Medical History: Cancer Additional Family Medical History / Comment(s): breast cancer, 3 grandparents with cancer-breast and colon cancer Medications and Allergies Home Medications Medication Instructions Recorded Confirmed Type FLUoxetine HCL [PROzac] 20 mg PO DAILY 12/02/22 12/05/22 History HYDROcodone/APAP 5-325MG [[place] 1 tab PO Q6HR PRN 3 Days #12 tab 12/02/22 12/05/22 Rx 5-325] Ondansetron Odt [Zofran Odt] 4 mg PO Q8HR PRN #15 tab 12/02/22 12/05/22 Rx Ketorolac [Toradol] 10 mg PO Q6HR 12/05/22 12/05/22 History Allergies Allergy/AdvReac Type Severity Reaction Status Date / Time meloxicam AdvReac Swelling Verified 12/05/22 10:08 Penicillins AdvReac Rash/Hives Verified 12/05/22 10:08 Surgical - Exam - General no distress, moderate pain - Eyes normal ocular movement, no pale - ENT normal nares, normal mucosa - Respiratory normal expansion, normal respiratory effort - Abdomen Abdomen: soft, non tender Assessment and Plan Assessment: OR for right-sided ureteroscopy, holmium laser lithotripsy, stone basketing and stent insertion
[~2022-12-10 12:00] MED LIST changes: +CIPROFLOXACIN/DEXTROSE PMX 400 MG in DEXTROSE/WATER 1 200ML.BAG IVPB PRN; -DEXAMETHASONE SOD PHOSPHATE 10 MG/ML 1 ML VIAL IV ONE; +DEXAMETHASONE SOD PHOSPHATE 4 MG/ML 1 ML VIAL IV ONE; +HYDROmorphone 0.5 MG/0.5 ML SYRINGE IVP PRN; +LACTATED RINGERS 1,000 ML IV SCH; -MORPHINE SULFATE 4 MG/ML SYRINGE IV PRN; +ONDANSETRON 4 MG/2 ML VIAL IVP ONE; -ONDANSETRON ODT 4 MG TAB PO ONE
--- NOTE | 2022-12-10 12:40 | XR ---
EXAMINATION TYPE: XR KUB DATE OF EXAM: 12/10/2022 HISTORY: Pain Comparison: None.Single KUB is submitted for interpretation. Findings: Right renal calculi: None Visualized. Right ureteral calculi: None Visualized. Left renal calculi: None Visualized. Left ureteral calculi: None Visualized. Pelvic calcifications: 7 mm calculus overlying the region of the urinary bladder. Bowel gas pattern is unremarkable. No free air. No mass effects. IMPRESSION: 1. 7 mm calculus overlying the region of the urinary bladder.
[2022-12-10] MEDS ORDERED: PROPOFOL 10 MG/ML 20 ML VIAL IV ONE (13:15)
[2022-12-10] MEDS ORDERED: LIDOCAINE 2% INJ 20 MG/ML (2 ML VIAL) ONE (13:15)
[2022-12-10] MEDS ORDERED: SUCCINYLCHOLINE CHLORIDE 200 MG/10 ML VIAL IV ONE (13:15)
[2022-12-10] MEDS ORDERED: MIDAZOLAM 2 MG/2 ML VIAL ONE (13:15)
[2022-12-10] MEDS ORDERED: fentaNYL (PF) 50 MCG/ML 2 ML AMP ONE (13:15)
[2022-12-10] MEDS ORDERED: IOPAMIDOL-370 100ML BTL INTRATHECA ONE (13:19)
[2022-12-10 14:10] VITALS: RESP 16; TEMP 97.3
--- NOTE | 2022-12-10 14:13 | P.OP ---
Date of Procedure: 12/10/22 Preoperative Diagnosis: Right ureteral stone Postoperative Diagnosis: Same Procedure(s) Performed: Cystoscopy, right ureteroscopy, holmium laser lithotripsy, stone basketing Implants: none Anesthesia: JAIMEA Surgeon: Pepe Conway Estimated Blood Loss (ml): 5 Pathology: other (Right ureteral stone) Condition: stable Disposition: PACU Indications for Procedure: This is a 42-year-old female with a history of 1.1 cm right-sided distal ureteral stone. She symptomatic from her stone. Option of right-sided ureteroscopy with holmium laser was discussed with her detail. Discussed risk which includes but not limited to bleeding, infection, injury to the ureter. Risk of anesthesia was also discussed with her. She understood all the risk and agreed to proceed Operative Findings: right distal stone Description of Procedure: Patient brought to the operating room, general anesthesia was induced. She was prepped and draped in sterile fashion and placed in dorsal lithotomy position. Cystoscopy fitted with 21-Wolof sheath was inserted per urethra, cystoscopy was performed which showed no abnormality within the bladder. At this time a semirigid ureteroscope was advanced up the right ureteral orifice, stone was encountered in the distal ureter. Using the holmium laser the stone was fragmented, sizable fragments were removed using stone basket. Athis time the ureteroscope was advanced all the way up to the UPJ which showed no additional stones. Pullback ureteroscopy was performed which showed no injury to the ureter or any sizable fragments. There was no ureteral edema, thus a stent was not placed. The bladder was emptied and the end of the case. Patient tolerated procedure well was taken to recovery in stable condition
[2022-12-10 15:10] VITALS: BP 148/93; PULSE 73
== END 2022-12-10 15:30 | disposition home or self-care (01) ==
LOC: OR 12:00
PROVIDERS: ATTEND Urology
DX: N20.2 Calculus of kidney with calculus of ureter (principal); F10.90 Alcohol use, unspecified, uncomplicated; K58.9 Irritable bowel syndrome, unspecified; Z90.49 Acquired absence of other specified parts of digestive tract; Z90.710 Acquired absence of both cervix and uterus; Z98.890 Other specified postprocedural states; Z98.51 Tubal ligation status
CPT/HCPCS: 52353; 82365; 74018; C1769; J2250; J0330; J1100; J2405; J3010; J0744; J2704; J2001

== ENCOUNTER → 2023-08-02 | Outpatient (CLI) | payer OTHER ==
--- NOTE | 2023-08-02 09:55 | MR ---
EXAMINATION TYPE: MR cervical spine wo con DATE OF EXAM: 08/02/2023 9:11 AM CLINICAL INDICATION:Female, 42 years old with history of M54.50 LOW BACK PAIN; PHH, Neck pain, headac hes. COMPARISON: 04/17/2017. TECHNIQUE: Multi planar, multi sequence imaging was performed utilizing: T1-weighted, T2-weighted, an d turbo inversion recovery imaging of the cervical spine. IV Contrast: cc (none if empty) FINDINGS: Alignment: The cervical vertebral bodies have preserved heights. Alignment is within normal limits gi mary beth patient positioning. Bones: Mild degeneration with osteophytes and disc space narrowing. Multilevel degenerative disc dise ase is noted and most pronounced at the C5-C7 vertebral levels. Cord: The spinal cord is unremarkable with regards to their signal intensity and morphology. Discs: Multilevel disc desiccation is present. C2-C3: No significant disc pathology. The spinal canal is patent. No neural foraminal stenosis. C3-C4: No significant disc pathology. The spinal canal is patent. No neural foraminal stenosis. C4-C5: No significant disc pathology. The spinal canal is patent. No neural foraminal stenosis. C5-C6: No significant disc pathology. The spinal canal is patent. Bilateral facet and uncovertebral joint arthropathy are present with mild left neural foraminal stenosis. The right neural foramen is p atent. C6-C7: A disc osteophyte complex is present which minimally narrows the ventral subarachnoid space. No neural foraminal stenosis. C7-T1: No significant disc pathology. The spinal canal is patent. No neural foraminal stenosis. Other: None. IMPRESSION: 1. No evidence for disc herniation or significant spinal canal stenosis. 2. Mild disc degeneration with associated osteoarthritic changes. No significant neural foraminal elli nosis.
== END | disposition home or self-care (01) ==
LOC: RADMRIMAIN 08:34
PROVIDERS: ATTEND Physical Medicine & Rehabilitation
DX: M47.12 Other spondylosis with myelopathy, cervical region (principal); M50.00 Cervical disc disorder with myelopathy, unspecified cervical region
CPT/HCPCS: 72141

== ENCOUNTER 2023-11-17 13:25 | Emergency (ER) | payer OTHER ==
--- NOTE | 2023-11-17 13:41 | ED ---
Abdominal Pain HPI - General Source: patient, RN notes reviewed Mode of arrival: ambulatory Limitations: no limitations <Porsche Bay - Last Filed: 11/17/23 13:40> - General Source: patient, RN notes reviewed Mode of arrival: ambulatory Limitations: no limitations <Lucas Man - Last Filed: 11/17/23 17:23> - General Stated Complaint: back pain Time Seen by Provider: 11/17/23 13:40 - History of Present Illness Initial Comments: Quick note: Patient is a 43-year-old female presenting to the ER with a chief complaint of right flank pain. Patient has a known history of kidney stones. She states for the past 2 days she has been having right flank pain which has been increasing. Reports nausea and dysuria. Denies any hematuria. (Porsche Bay) 43-year-old female presents emergency department complaint of right flank pain. She has a known history of kidney stone states she has recurrent kidney stones. Patient denies any fevers or chills she states pain has been increasing last couple days she does report nausea there is some discomfort with movement but denies any trauma no hematuria. (Lucas Man) - Related Data Home Medications Medication Instructions Recorded Confirmed FLUoxetine HCL [PROzac] 20 mg PO DAILY 12/02/22 12/10/22 Ketorolac [Toradol] 10 mg PO Q6HR 12/05/22 12/05/22 Previous Rx's Medication Instructions Recorded HYDROcodone/APAP 5-325MG [[place] 1 tab PO Q6HR PRN 3 Days #12 tab 12/02/22 5-325] Ondansetron Odt [Zofran Odt] 4 mg PO Q8HR PRN #15 tab 12/02/22 HYDROcodone/APAP 7.5-325MG [[place] 1 tab PO Q6HR PRN 3 Days #12 tab 11/17/23 7.5-325] Ketorolac [Toradol] 10 mg PO Q8HR #15 tab 11/17/23 Ondansetron Odt [Zofran Odt] 4 mg PO Q8HR PRN #10 tab 11/17/23 Allergies Allergy/AdvReac Type Severity Reaction Status Date / Time meloxicam AdvReac Swelling Verified 11/17/23 13:40 Penicillins AdvReac Rash/Hives Verified 11/17/23 13:40 Review of Systems ROS Other: All systems not noted in ROS Statement are negative. <Porsche [place] - Last Filed: 11/17/23 13:40> ROS Other: All systems not noted in ROS Statement are negative. <Lucas Man - Last Filed: 11/17/23 17:23> ROS Statement: Those systems with pertinent positive or pertinent negative responses have been documented in the HPI. Past Medical History Past Medical History: Musculoskeletal Disorder Additional Past Medical History / Comment(s): IBS., tests positive for TB but chest x-rays negative., kidney stones History of Any Multi-Drug Resistant Organisms: None Reported Past Surgical History: Cholecystectomy, Hysterectomy, Tubal Ligation, Uterine Ablation Additional Past Surgical History / Comment(s): D&C; Kidney stones removal Past Anesthesia/Blood Transfusion Reactions: No Reported Reaction Past Psychological History: No Psychological Hx Reported Smoking Status: Never smoker Past Alcohol Use History: Occasional Past Drug Use History: None Reported - Past Family History Mother Family Medical History: Cancer Additional Family Medical History / Comment(s): breast cancer, 3 grandparents with cancer-breast and colon cancer <Porsche [place] - Last Filed: 11/17/23 13:40> General Exam Limitations: no limitations <Porsche [place] - Last Filed: 11/17/23 13:40> Limitations: no limitations General appearance: alert, in no apparent distress Head exam: Present: atraumatic, normocephalic, normal inspection Eye exam: Present: normal appearance, PERRL, EOMI. Absent: scleral icterus, conjunctival injection, periorbital swelling ENT exam: Present: normal exam, normal oropharynx, mucous membranes moist, TM's normal bilaterally Neck exam: Present: normal inspection, full ROM. Absent: tenderness, meningismus, lymphadenopathy Respiratory exam: Present: normal lung sounds bilaterally. Absent: respiratory distress, wheezes, rales, rhonchi, stridor Cardiovascular Exam: Present: regular rate, normal rhythm, normal heart sounds. Absent: systolic murmur, diastolic murmur, rubs, gallop, clicks GI/Abdominal exam: Present: soft, tenderness, normal bowel sounds. Absent: distended, guarding, rebound, rigid Back exam: Present: CVA tenderness (R). Absent: CVA tenderness (L) Skin exam: Present: warm, dry, intact, normal color. Absent: rash <Lucas Man - Last Filed: 11/17/23 17:23> - General Exam Comments Initial Comments: Visual Physical Exam Vital signs reviewed General: Well-appearing, nontoxic, no acute distress. Head: Normocephalic, atraumatic Eyes: PERRLA, EOMI ENT: Airway patent Chest: Nonlabored breathing Skin: No visual rash, normal skin tone Neuro: Alert and oriented 3 Musculoskeletal: No gross abnormalities (Porsche [place]) Course Vital Signs 11/17/23 11/17/23 13:35 16:24 Temperature 97.9 F Pulse Rate 81 70 Respiratory 16 18 Rate Blood Pressure 144/85 128/82 O2 Sat by Pulse 100 100 Oximetry Medical Decision Making <Porsche Bay - Last Filed: 11/17/23 13:40> - Lab Data Result diagrams: 11/17/23 15:25 11/17/23 15:25 <Lucas Man - Last Filed: 11/17/23 17:23> - Medical Decision Making I performed the quick note portion of this chart. Electronically signed by Porsche Bay PA-C ([place]) Was pt. sent in by a medical professional or institution ([facility], FELLMONGERY WORKER, urgent c are, hospital, or fdc...) When possible be specific @ -No Did you speak to anyone other than the patient for history (EMS, parent, family, police, friend...)? What history was obtained from this source @ -No Did you review nursing and triage notes (agree or disagree)? Why? @ -I reviewed and agree with nursing and triage notes Were old charts reviewed (outside hosp., previous admission, EMS record, old EKG, old radiological studies, urgent care reports/EKG's, fdc records)? Report findings @ -No old charts were reviewed Differential Diagnosis (chest pain, altered mental status, abdominal pain women, abdominal pain men, vaginal bleeding, weakness, fever, dyspnea, syncope, h eadache, dizziness, GI bleed, back pain, seizure, CVA, palpatations, mental health, musculoskeletal)? @ -Differential Abdominal Pain Women: Appendicitis, Cholecystitis, diverticulosis, ischemic bowel, pancreatitis, hepatitis, UTI, gastroenteritis, AAA, incarcerated hernia, bowel obstruction, constipation, inflammatory bowel, hepatitis, peptic ulcer disease, splenic infarction, perforated viscus, vulvitis, ovarian torsion, PID, kidney stone, placenta abruption, this is not meant to be an all-inclusive list EKG interpreted by me (3pts min.). @ -None X-rays interpreted by me (1pt min.). @ -None done CT interpreted by me (1pt min.). @ -CT of the abdomen pelvis showing multiple kidney stones, no ureteral stone noted U/S interpreted by me (1pt. min.). @ -None done What testing was considered but not performed or refused? (CT, X-rays, U/S, labs)? Why? @ -None What meds were considered but not given or refused? Why? @ -None Did you discuss the management of the patient with other professionals (professionals i.e. , PA, FELLMONGERY WORKER, lab, RT, psych nurse, clinical social worker, gis mapping technician, teacher, chief security and safety officer, mental health case manager)? Give summary @ -No Was smoking cessation discussed for >3mins.? @ -No Was critical care preformed (if so, how long)? @ -No Were there social determinants of health that impacted care today? How? (Homelessness, low income, unemployed, alcoholism, drug addiction, transportation, low edu. Level, literacy, decrease access to med. care, intermediate, rehab)? @ -No Was there de-escalation of care discussed even if they declined (Discuss DNR or withdrawal of care, Hospice)? DNR status @ -No What co-morbidities impacted this encounter? (DM, HTN, Smoking, COPD, CAD, Cancer, CVA, ARF, Chemo, Hep., AIDS, mental health diagnosis, sleep apnea, morbid obesity)? @ -None Was patient admitted / discharged? Hospital course, mention meds given and route, prescriptions, significant lab abnormalities, going to OR and other pertinent info. @ -Discharge patient's pain is improved. Patient does have kidney stones but no stone within the ureter patient's pain may be musculoskeletal in nature oseas ent's pain is improved will be discharged in stable condition. Undiagnosed new problem with uncertain prognosis? @ -No Drug Therapy requiring intensive monitoring for toxicity (Heparin, Nitro, Insulin, Cardizem)? @ -No Were any procedures done? @ -No Diagnosis/symptom? @ -Flank pain, history of kidney stones Acute, or Chronic, or Acute on Chronic? @ -Acute Uncomplicated (without systemic symptoms) or Complicated (systemic symptoms)? @ -Uncomplicated Side effects of treatment? @ -No Exacerbation, Progression, or Severe Exacerbation? @ -No Poses a threat to life or bodily function? How? (Chest pain, USA, CA, pneumonia, PE, COPD, DKA, ARF, appy, cholecystitis, CVA, Diverticulitis, Homicidal, [place] icidal, threat to staff... and all critical care pts) @ -No (Lucas Man) - Lab Data Lab Results 11/17/23 11/17/23 11/17/23 Range/Units 15:25 15:25 15:25 WBC 14.5 H (3.8-10.6) k/uL RBC 4.72 (3.80-5.40) m/uL Hgb 14.1 (11.4-16.0) gm/dL Hct 43.1 (34.0-46.0) % MCV 91.2 (80.0-100.0) fL MCH 29.9 (25.0-35.0) pg MCHC 32.8 (31.0-37.0) g/dL RDW 12.7 (11.5-15.5) % Plt Count 330 (150-450) k/uL MPV 7.4 Neutrophils % 77 % Lymphocytes % 16 % Monocytes % 5 % Eosinophils % 1 % Basophils % 0 % Neutrophils # 11.2 H (1.3-7.7) k/uL Lymphocytes # 2.3 (1.0-4.8) k/uL Monocytes # 0.7 (0-1.0) k/uL Eosinophils # 0.1 (0-0.7) k/uL Basophils # 0.1 (0-0.2) k/uL Sodium 140 (137-145) mmol/L Potassium 4.2 (3.5-5.1) mmol/L Chloride 108 H (98-107) mmol/L Carbon Dioxide 25 (22-30) mmol/L Anion Gap 7 mmol/L BUN 11 (7-17) mg/dL Creatinine 0.60 (0.52-1.04) mg/dL Est GFR (CKD-EPI)AfAm >90 (>60 ml/min/1.73 sqM) Est GFR (CKD-EPI)NonAf >90 (>60 ml/min/1.73 sqM) Glucose 91 (74-99) mg/dL Plasma Lactic Acid Shayne (0.7-2.0) mmol/L Calcium 9.2 (8.4-10.2) mg/dL Total Bilirubin 0.6 (0.2-1.3) mg/dL AST 22 (14-36) U/L ALT 22 (4-34) U/L Alkaline Phosphatase 59 (38-126) U/L Total Protein 7.0 (6.3-8.2) g/dL Albumin 4.4 (3.5-5.0) g/dL Urine Color Colorless Urine Appearance Clear (Clear) Urine pH 6.0 (5.0-8.0) Ur Specific [place] 1.012 (1.001-1.035) Urine Protein Negative (Negative) Urine Glucose (UA) Negative (Negative) Urine Ketones Negative (Negative) Urine Blood Negative (Negative) Urine Nitrite Negative (Negative) Urine Bilirubin Negative (Negative) Urine Urobilinogen <2.0 (<2.0) mg/dL Ur Leukocyte Esterase Negative (Negative) 11/17/23 Range/Units 15:25 WBC (3.8-10.6) k/uL RBC (3.80-5.40) m/uL Hgb (11.4-16.0) gm/dL Hct (34.0-46.0) % MCV (80.0-100.0) fL MCH (25.0-35.0) pg MCHC (31.0-37.0) g/dL RDW (11.5-15.5) % Plt Count (150-450) k/uL MPV Neutrophils % % Lymphocytes % % Monocytes % % Eosinophils % % Basophils % % Neutrophils # (1.3-7.7) k/uL Lymphocytes # (1.0-4.8) k/uL Monocytes # (0-1.0) k/uL Eosinophils # (0-0.7) k/uL Basophils # (0-0.2) k/uL Sodium (137-145) mmol/L Potassium (3.5-5.1) mmol/L Chloride (98-107) mmol/L Carbon Dioxide (22-30) mmol/L Anion Gap mmol/L BUN (7-17) mg/dL Creatinine (0.52-1.04) mg/dL Est GFR (CKD-EPI)AfAm (>60 ml/min/1.73 sqM) Est GFR (CKD-EPI)NonAf (>60 ml/min/1.73 sqM) Glucose (74-99) mg/dL Plasma Lactic Acid Shayne 1.0 (0.7-2.0) mmol/L Calcium (8.4-10.2) mg/dL Total Bilirubin (0.2-1.3) mg/dL AST (14-36) U/L ALT (4-34) U/L Alkaline Phosphatase (38-126) U/L Total Protein (6.3-8.2) g/dL Albumin (3.5-5.0) g/dL Urine Color Urine Appearance (Clear) Urine pH (5.0-8.0) Ur Specific [place] (1.001-1.035) Urine Protein (Negative) Urine Glucose (UA) (Negative) Urine Ketones (Negative) Urine Blood (Negative) Urine Nitrite (Negative) Urine Bilirubin (Negative) Urine Urobilinogen (<2.0) mg/dL Ur Leukocyte Esterase (Negative) Disposition <[place] - Last Filed: 11/17/23 13:40> Is patient prescribed a controlled substance at d/c from ED?: Yes When asked, does pt state using other controlled substances?: No If prescribed controlled substance>3 days was MAPS reviewed?: Prescribed <3 Days If opioid is for acute pain is fill amount 7 days or less?: Yes If Rx opioid, was Start Talking consent form obtained?: Yes Time of Disposition: 17:10 <Lucas Man - Last Filed: 11/17/23 17:23> Clinical Impression: Right flank pain, Kidney stones Disposition: HOME SELF-CARE Condition: Stable Instructions (If sedation given, give patient instructions): Flank Pain (ED) Additional Instructions: Please return to the Emergency Department if symptoms worsen or any other co ncerns. Prescriptions: HYDROcodone/APAP 7.5-325MG [[place] 7.5-325] 1 tab PO Q6HR PRN 3 Days #12 tab PRN Reason: Pain Ketorolac [Toradol] 10 mg PO Q8HR #15 tab Ondansetron Odt [Zofran Odt] 4 mg PO Q8HR PRN #10 tab PRN Reason: Nausea Referrals: Eligio Sahni MD [Primary Care Provider] - 1-2 days Pepe Conway MD [STAFF PHYSICIAN] - 1-2 days
[2023-11-17 14:14] VITALS: TEMP 97.9
--- NOTE | 2023-11-17 14:45 | CT ---
EXAMINATION TYPE: CT abdomen pelvis wo con DATE OF EXAM: 11/17/2023 COMPARISON: 12/02/2022 HISTORY: Right flank pain hx of stones CT DLP: 676 mGycm Examination of the solid and hollow viscera is limited given the lack of contrast. FINDINGS: LUNG BASES: No evidence for nodule. No evidence for infiltrate. LIVER/GB: The gallbladder is surgically absent. No space-occupying hepatic lesion. PANCREAS: No pancreatic mass identified. No inflammatory process seen. SPLEEN: No evidence for splenomegaly. No intrasplenic lesions seen. ADRENALS: No adrenal nodules identified. No evidence for thickening. KIDNEYS: Stable hypoattenuating lesion upper pole right kidney. Previously noted obstructing right UV J calculus has passed. There are small nonobstructing calculi seen bilaterally to upper pole right ki dney measuring up to 3 mm and approximately 4-5 nonobstructing calculi left kidney measuring up to 4 mm. There is no hydronephrosis. BOWEL: Appendix has a normal appearance. No evidence of bowel obstruction. No inflammatory process. Lymph nodes: No evidence for adenopathy greater than 1 cm. Abdominal aorta: Atheromatous changes seen. No evidence for aneurysm. Genital organs: Hysterectomy changes noted. No evidence of adnexal mass. Other: No significant abnormality. IMPRESSION: Previously noted obstructing right UVJ calculus has passed. There are small nonobstructing calculi se en bilaterally to upper pole right kidney measuring up to 3 mm and approximately 4-5 nonobstructing c alculi left kidney measuring up to 4 mm. There is no hydronephrosis.
[2023-11-17 15:41] LABS: Basophils # (A) 0.1 k/uL (0-0.2); Basophils % (A) 0 %; Eosinophils # (A) 0.1 k/uL (0-0.7); Eosinophils % (A) 1 %; HCT 43.1 % (34.0-46.0); HGB 14.1 gm/dL (11.4-16.0); Lymphocytes # (A) 2.3 k/uL (1.0-4.8); Lymphocytes % (A) 16 %; MCH 29.9 pg (25.0-35.0); MCHC 32.8 g/dL (31.0-37.0); MCV 91.2 fL (80.0-100.0); Mean Platelet Volume 7.4; Monocytes # (A) 0.7 k/uL (0-1.0); Monocytes % (A) 5 %; Neutrophils # (A) 11.2 k/uL (1.3-7.7); Neutrophils % (A) 77 %; Platelet Count 330 k/uL (150-450); RBC 4.72 m/uL (3.80-5.40); RDW 12.7 % (11.5-15.5); WBC 14.5 k/uL (3.8-10.6)
[2023-11-17 15:42] LABS: Appearance,Urine Clear (Clear); Bilirubin,Urine Negative (Negative); Blood,Urine Negative (Negative); Color,Urine Colorless; Glucose,Urine (UA) Negative (Negative); Ketones,Urine Negative (Negative); Leukocyte Esterase,Urine Negative (Negative); Nitrite,Urine Negative (Negative); Protein,Urine Negative (Negative); Specific Gravity,Urine 1.012 (1.001-1.035); Urobilinogen,Urine <2.0 mg/dL (<2.0)
[2023-11-17 15:59] LABS: ALT 22 U/L (4-34); AST 22 U/L (14-36); African American GFR (CKD) >90 (>60 ml/min/1.73 sqM); Albumin 4.4 g/dL (3.5-5.0); Alkaline Phosphatase 59 U/L (38-126); Anion Gap 7 mmol/L; Blood Urea Nitrogen 11 mg/dL (7-17); Calcium 9.2 mg/dL (8.4-10.2); Carbon Dioxide 25 mmol/L (22-30); Chloride 108 mmol/L (98-107); Glucose 91 mg/dL (74-99); Non-African American GFR(CKD) >90 (>60 ml/min/1.73 sqM); Potassium 4.2 mmol/L (3.5-5.1); Sodium 140 mmol/L (137-145); Total Bilirubin 0.6 mg/dL (0.2-1.3)
[2023-11-17] MEDS: SODIUM CHLORIDE 0.9% 1,000 ML IV STA (16:26)
[2023-11-17 16:27] VITALS: BP 128/82; PULSE 70; RESP 18
[2023-11-17] MEDS: KETOROLAC 15 MG/ML 1 ML VIAL IVP STA (16:37)
[2023-11-17] MEDS: HYDROmorphone 0.5 MG/0.5 ML SYRINGE IVP STA (16:38)
[2023-11-17] MEDS: ONDANSETRON 4 MG/2 ML VIAL IVP STA (16:38)
[2023-11-17] MEDS: ORPHENADRINE 30 MG/ML 2 ML VIAL IVP STA (17:14)
== END 2023-11-17 17:21 | disposition home or self-care (01) ==
LOC: EC 13:25
DX: N20.0 Calculus of kidney (principal); Z88.0 Allergy status to penicillin; Z88.6 Allergy status to analgesic agent
CPT/HCPCS: 36415; 80053; 83605; 85025; 81003; 74176; 99284; 96374; 96375 ×3; 96361; J2360; J2405; J1885; J1170

== ENCOUNTER → 2023-12-09 | Outpatient (CLI) | payer OTHER ==
[2023-12-10 02:29] LABS: Basophils # (A) 0.06 X 10*3/uL (0.00-0.10); Basophils % (A) 0.5 %; Eosinophils # (A) 0.06 X 10*3/uL (0.04-0.35); Eosinophils % (A) 0.5 %; HCT 42.9 % (37.2-46.3); HGB 13.9 g/dL (12.0-15.0); Lymphocytes # (A) 2.64 X 10*3/uL (0.90-5.00); Lymphocytes % (A) 23.8 %; MCH 30.2 pg (27.0-32.0); MCHC 32.4 g/dL (32.0-37.0); MCV 93.1 FL (80.0-97.0); Monocytes # (A) 0.43 X 10*3/uL (0.20-1.00); Monocytes % (A) 3.9 %; NRBC Per 100 WBC 0 X 10*3/uL (0.00-0.01); Neutrophils # (A) 7.89 X 10*3/uL (1.80-7.70); Platelet Count 377 X 10*3/uL (140-440); RBC 4.61 X 10*6/uL (4.10-5.20); RDW 12.9 % (11.5-14.5); WBC 11.11 X 10*3/uL (4.50-10.00)
[2023-12-10 02:50] LABS: BUN/Creat Ratio 14.71 Ratio (12.00-20.00); Blood Urea Nitrogen 10.3 mg/dL (9.0-27.0); Calcium 9.2 mg/dL (8.7-10.3); Chloride 102 mmol/L (96-109); Glucose 109 mg/dL (70-110); Potassium 3.9 mmol/L (3.5-5.5); Sodium 138 mmol/L (135-145)
[2023-12-10 04:02] LABS: Appearance,Urine Clear (Clear); Bilirubin,Urine Negative (Negative); Blood,Urine Negative (Negative); Color,Urine Yellow (Yellow); Ketones,Urine Negative (Negative); Nitrite,Urine Negative (Negative); PH, Urine 7.5; Specific Gravity,Urine 1.007 (1.001-1.030); Urobilinogen,Urine 0.2 E.U./DL
== END | disposition home or self-care (01) ==
LOC: LABPAT 16:20
PROVIDERS: ATTEND Urology
DX: Z01.812 Encounter for preprocedural laboratory examination (principal); N20.0 Calculus of kidney
CPT/HCPCS: 80048; 81003; 85025; 87086

== ENCOUNTER 2023-12-16 10:48 | Day surgery (SDC) | payer OTHER ==
[2023-12-11 13:13] VITALS: BMI 28.5
--- NOTE | 2023-12-12 08:29 | P.HPIHPCON ---
History of Present Illness H&P Date: 12/12/23 Chief Complaint: Bilateral renal stones This is a 43-year-old female with history of bilateral flank pain, underwent a CT abdomen pelvis that showed evidence of bilateral nonobstructing renal stones. I reviewed the CT scan with her and discussed with her these are nonobstructive stone, but she indicated she is having flank pain. Discussed potential that the stone could be causing her flank pain. Option of stone removal were discussed with her. She is aware the risk which includes but not limited to bleeding, infection, injury to the ureter. She is also aware that she might continue to have flank pain even with stone removals. She understood all the risk and agr eed to proceed Consent for Procedure: I have explained the operation/procedure to the patient, including the risks, benefits, side effects, alternative therapies (including not receiving the proposed treatment or service), the likelihood of the patient achieving his/her goals, and potential recuperation problems for the procedure/sedation/analgesia, as well as any blood products, if indicated. I also explained to the patient the risks, benefits and side effects of the alternatives, as well as the risks related to not receiving the proposed procedure, care, treatment, or services. Past Medical History Past Medical History: Musculoskeletal Disorder Additional Past Medical History / Comment(s): IBS., tests positive for TB but chest x-rays negative., kidney stones History of Any Multi-Drug Resistant Organisms: None Reported Past Surgical History: Cholecystectomy, Hysterectomy, Tubal Ligation, Uterine Ablation Additional Past Surgical History / Comment(s): D&C; Kidney stones removal Past Anesthesia/Blood Transfusion Reactions: No Reported Reaction Smoking Status: Never smoker - Past Family History Mother Family Medical History: Cancer Additional Family Medical History / Comment(s): breast cancer, 3 grandparents with cancer-breast and colon cancer Medications and Allergies Home Medications Medication Instructions Recorded Confirmed Type FLUoxetine HCL [PROzac] 20 mg PO DAILY 12/02/22 12/10/22 History HYDROcodone/APAP 5-325MG [[place] 1 tab PO Q6HR PRN 3 Days #12 tab 12/02/22 12/10/22 Rx 5-325] Ondansetron Odt [Zofran Odt] 4 mg PO Q8HR PRN #15 tab 12/02/22 12/05/22 Rx Ketorolac [Toradol] 10 mg PO Q6HR 12/05/22 12/05/22 History HYDROcodone/APAP 7.5-325MG [[place] 1 tab PO Q6HR PRN 3 Days #12 tab 11/17/23 Rx 7.5-325] Ketorolac [Toradol] 10 mg PO Q8HR #15 tab 11/17/23 Rx Ondansetron Odt [Zofran Odt] 4 mg PO Q8HR PRN #10 tab 11/17/23 Rx Allergies Allergy/AdvReac Type Severity Reaction Status Date / Time meloxicam AdvReac Swelling Verified 12/11/23 12:31 Penicillins AdvReac Rash/Hives Verified 12/11/23 12:31 Surgical - Exam - General no distress, moderate pain - Eyes normal ocular movement, no pale - ENT normal nares, normal mucosa - Respiratory normal expansion, normal respiratory effort - Abdomen Abdomen: soft, non tender - Psychiatric oriented to time, oriented to person, oriented to place Assessment and Plan Assessment: OR for bilateral ureteroscopy, holmium laser lithotripsy, stone basketing and stent insertions
[~2023-12-16 10:48] MED LIST changes: -CIPROFLOXACIN/DEXTROSE PMX 400 MG in DEXTROSE/WATER 1 200ML.BAG IVPB PRN; -DEXAMETHASONE SOD PHOSPHATE 4 MG/ML 1 ML VIAL IV ONE; +MIDAZOLAM 2 MG/2 ML VIAL IV PRN; -ONDANSETRON 4 MG/2 ML VIAL IVP ONE; +SCOPOLAMINE 1 MG/72 HR PATCH TRANSDERM ONE
--- NOTE | 2023-12-16 11:21 | XR ---
EXAMINATION TYPE: XR KUB DATE OF EXAM: 12/16/2023 11:01 AM CLINICAL INDICATION:Female, 43 years old with history of KIDNEY STONES; [facility] COMPARISON: CT 11/17/2023 TECHNIQUE: One radiographic view of the abdomen was obtained. FINDINGS: The bowel gas pattern is nonspecific without dilated loops of small or large bowel. There i s no evidence for organomegaly or pneumoperitoneum. The osseous structures are intact. Known renal calculi bilaterally are less well appreciated due to overlapping bowel.. Fecal material and gas are d emonstrated throughout the colon and rectum. Right tubal ligation clip right upper quadrant cholecys tectomy clips. IMPRESSION: Multiple bilateral renal calculus seen on prior CT are less well appreciated due to overlapping bowel .
[2023-12-16] MEDS: LACTATED RINGERS 1,000 ML IV ONE (11:27)
[2023-12-16 11:51] VITALS: TEMP 97.7
[2023-12-16] MEDS: ONDANSETRON 4 MG/2 ML VIAL IVP ONE (11:52)
[2023-12-16] MEDS: DEXAMETHASONE SOD PHOSPHATE 4 MG/ML 1 ML VIAL IV ONE (11:52)
[2023-12-16] MEDS: CIPROFLOXACIN/DEXTROSE PMX 400 MG in DEXTROSE/WATER 1 200ML.BAG IVPB PRN (11:57)
[2023-12-16] MEDS ORDERED: LIDOCAINE 1% INJ 10MG/ML (20 ML MDV) ONE (13:14)
[2023-12-16] MEDS ORDERED: PROPOFOL 10 MG/ML 20 ML VIAL IV ONE (13:14)
[2023-12-16] MEDS ORDERED: MIDAZOLAM 2 MG/2 ML VIAL ONE (13:14)
[2023-12-16] MEDS ORDERED: fentaNYL (PF) 50 MCG/ML 2 ML AMP ONE (13:14)
--- NOTE | 2023-12-16 14:22 | FL ---
EXAMINATION TYPE: FL guidance operating room Intraoperative/procedural fluoroscopic services were pro vided. Total fluoroscopy time is 31.4 seconds with a total of 5 submitted images to PACS. Please see the operative/procedural note for further details. DAP: 3.965 Gycm2
--- NOTE | 2023-12-16 14:39 | P.OP ---
Date of Procedure: 12/16/23 Preoperative Diagnosis: Bilateral renal stones Postoperative Diagnosis: Same Procedure(s) Performed: Cystoscopy, bilateral ureteroscopy, holmium laser lithotripsy, stone basketing and stent insertions Implants: 6 Syrian by 26 cm stents placed in the bilateral ureters, both left on string Anesthesia: ANUPAMA Surgeon: Pepe Conway Estimated Blood Loss (ml): 5 Pathology: other (Bilateral renal stones) Condition: stable Disposition: PACU Indications for Procedure: This is a 43-year-old female with history of bilateral flank pain, underwent a CT abdomen pelvis that showed evidence of bilateral nonobstructing renal stones. I reviewed the CT scan with her and discussed with her these are nonobstructive stone, but she indicated she is having flank pain. Discussed potential that the stone could be causing her flank pain. Option of stone removal were discussed with her. She is aware the risk which includes but not limited to bleeding, infection, injury to the ureter. She is also aware that she might continue to have flank pain even with stone removals. She understood all the risk and agreed to proceed Operative Findings: Multiple bilateral renal stones seen bilaterally Description of Procedure: Patient brought to the operating room, general anesthesia was induced. She was prepped and draped in sterile fashion and placed in dorsolithotomy position. Cystoscopy fitted with a 21 Syrian sheath was inserted per urethra, cystoscopy was performed which showed no abnormality within the bladder. Attention was then carried to the right ureteral orifice which was intubated with a sensor wi re. Next under fluoroscopy 1113 Syrian access sheath was passed over the wire into the proximal ureter. Next a flexible ureteroscope was inserted through the access sheath, renoscopy was performed which showed approximately 4 stones in the right kidney, one of the stones was fragmented using the holmium laser, the additional 3 stones were basketed and the fragments of the larger stone was also basketed and sent for analysis. Repeat renoscopy showed no injury to the kidney or any sizable stone fragments. Pullback ureteroscopy was performed showed no injury to the ureter or any ureteral stones, as ureteroscope was withdrawn a sensor wire was advanced through. Next under fluoroscopy a 6 Syrian by 26 cm stent was passed over the wire, the proximal curl was visualized on fluoroscopy and the distal curl was visualized using the cystoscope. Attention was then carried to the left side which was intubated with a sensor wire. The wire was advanced under fluoroscopy into the renal pelvis. Next under fluoroscopy and 1113 Syrian access sheath was passed over the wire into the proximal ureter. The flexible ureteroscope was inserted through the access sheath, renoscopy was performed which showed multiple stones within the kidney, using the holmium laser the stones were fragmented, sizable stone fragments were removed and sent for analysis. Repeat renoscopy showed no sizable fragments or injury to the kidney, pullback ureteroscopy was performed showed no injury to the ureter or any ureteral stones, as ureteroscope was withdrawn a sensor wire was advanced through. Next a ureteral stent was passed over the wire, the proximal curl visualized on fluoroscopy and the distal curl was visualized using the cystoscope. Both stents were left on a string and taped to the patient left thigh. The bladder was emptied at the end of the case. Patient tolerated procedure was taken to recovery in stable condition
[2023-12-16] MEDS: traMADol 50 MG TAB ONE (15:05)
[2023-12-16 16:54] VITALS: BP 141/82; PULSE 78; RESP 16
== END 2023-12-16 16:36 | disposition home or self-care (01) ==
LOC: OR 10:48
PROVIDERS: ATTEND Urology
DX: N20.0 Calculus of kidney (principal); Z90.49 Acquired absence of other specified parts of digestive tract; Z90.710 Acquired absence of both cervix and uterus; Z98.51 Tubal ligation status; Z87.442 Personal history of urinary calculi; Z80.3 Family history of malignant neoplasm of breast; Z80.0 Family history of malignant neoplasm of digestive organs; Z88.8 Allergy status to other drugs, medicaments and biological substances; Z88.0 Allergy status to penicillin; Z98.890 Other specified postprocedural states
CPT/HCPCS: 82365; 74018; 52356; C2625; C1769; J2250; J1100; J2405; J2001; J3010; J0744; J2704

== ENCOUNTER → 2025-02-11 | Outpatient (CLI) | payer OTHER ==
[2025-02-11 15:24] LABS: HCT 44.7 % (37.2-46.3); HGB 14.6 g/dL (12.0-15.0); MCH 29.9 pg (27.0-32.0); MCHC 32.7 g/dL (32.0-37.0); MCV 91.6 FL (80.0-97.0); Mean Platelet Volume 9.8 FL (9.5-12.2); NRBC Per 100 WBC 0 X 10*3/uL (0.00-0.01); Platelet Count 406 X 10*3/uL (140-440); RBC 4.88 X 10*6/uL (4.10-5.20); RDW 12.9 % (11.5-14.5); WBC 8.86 X 10*3/uL (4.50-10.00)
[2025-02-11 15:53] LABS: ALT 14 U/L (8-44); AST 15 U/L (13-35); Albumin 4.5 g/dL (3.8-4.9); Albumin/Globulin Ratio 1.88 Ratio (1.60-3.17); Alkaline Phosphatase 68 U/L (41-126); BUN/Creat Ratio 11.14 Ratio (12.00-20.00); Blood Urea Nitrogen 7.8 mg/dL (9.0-27.0); Calcium 9.4 mg/dL (8.7-10.3); Carbon Dioxide 26.1 mmol/L (21.6-31.8); Chloride 108 mmol/L (96-109); Chol/HDL Ratio 3.78 Ratio; Globulin 2.4 g/dL (1.6-3.3); Glucose 100 mg/dL (70-110); LDL Cholesterol,Calculated 121.6 mg/dL (0.0-131.0); Potassium 5.4 mmol/L (3.5-5.5); Sodium 144 mmol/L (135-145); T4, Free (Free Thyroxine) 1.07 ng/dL (0.80-1.80); Total Bilirubin 0.8 mg/dL (0.3-1.2); Total Protein 6.9 g/dL (6.2-8.2)
== END | disposition home or self-care (01) ==
LOC: LABWHC1 09:07
PROVIDERS: ATTEND Internal Medicine Clinical Cardiac Electrophysiology
DX: I47.19 Other supraventricular tachycardia (principal); I49.3 Ventricular premature depolarization
CPT/HCPCS: 36415; 80053; 80061; 83036; 84439; 84443; 85027